=== PATIENT | female | born 1995 | race African-American/Black ===

== ENCOUNTER 2017-04-18 21:44 | Emergency (ER) | payer OTHER ==
[~2017-04-18] VITALS: Ht 154.9 cm; Wt 49.7 kg
[~2017-04-18 21:44] MED LIST: AUGMENTIN875 MG PO; FLEXERIL10 MG PO; LOESTRIN 1/21 TABLET PO; MOTRIN400 MG PO; MOTRIN600 MG PO; PERIDEX1 ML MM; ULTRACET1 TABLET PO
[2017-04-18 22:16] LABS: CHLORIDE 105 mEq/L (99-109); POTASSIUM 3.9 mEq/L (3.7-5.4); SODIUM 135 mEq/L (136-147)
[2017-04-18 22:18] LABS: GLUCOSE 102 mg/dL (70-99)
[2017-04-18 22:19] LABS: ANION GAP 6 MEQ/L (2-14)
[2017-04-18 22:20] LABS: TOTAL BILIRUBIN 0.6 mg/dL (0.0-1.0)
[2017-04-18 22:22] LABS: ALKALINE PHOSPHATASE 41 IU/L (3-129); GFR ESTIMATE (CALCULATED) > 59 mL/min/
[2017-04-18 22:23] LABS: HEMATOCRIT 32.3 % (36.0-46.0); MCH 20.7 PG (29.0-34.0); MCHC 30.3 G/DL (30.0-36.0); MCV 68.3 FL (83-99); MEAN PLAT.VOLUME 10.5 uM^3 (9.5-12.4); PLATELET COUNT 164 K/uL (156-360); RBC DIS.WIDTH-CV 18.6 % (11.8-14.6); RBC DIS.WIDTH-SD 45.1 % (39-53); RED BLOOD COUNT 4.73 M/uL (3.80-5.20); UREA NITROGEN (BUN) 10 mg/dL (9-23); WHITE BLOOD COUNT 6.8 K/uL (4.1-10.2)
[2017-04-18 22:25] LABS: LIPASE 38 U/L (1.0-51.0)
[2017-04-18 22:31] LABS: QUANTITATIVE HCG < 4.0 MIU/ML
[2017-04-18 23:08] LABS: ADD MIUA? YES; BILIRUBIN NEGATIVE; BLOOD NEGATIVE; COLOR STRAW ((YELLOW)); GLUCOSE (STRIP) NEGATIVE; KETONES NEGATIVE; LEUKOCYTES SMALL; NITRITE NEGATIVE; PROTEIN (STRIP) NEGATIVE; SPECIFIC GRAVITY 1.002 (1.000-1.030); UROBILINOGEN 0.2 MG/DL (0.2-1.0)
[2017-04-18 23:12] LABS: BACTERIA RARE /HPF; EPITHELIAL CELLS 1+ /HPF; MUCUS NONE SEEN /LPF; RED BLOOD CELLS 0-5 /HPF (0-5); UCUL ADDED? NO; WHITE BLOOD CELLS 0-5 /HPF (0-5)
[2017-04-18] MEDS ORDERED: ZOFRAN4 MG PO (23:35)
[2017-04-18] MEDS ORDERED: PEPCID20 MG PO (23:35)
[2017-04-18 23:45] VITALS: BP 130/78
== END 2017-04-19 00:14 | disposition home or self-care (01) ==
LOC: EME 21:44
PROVIDERS: Physician Assistant
DX: R11.10 Vomiting, unspecified (principal); F17.200 Nicotine dependence, unspecified, uncomplicated
CPT/HCPCS: 80053; 81003; 83690; 84702; 85027; 99281; 99285; J1885; J2405; J7030

== ENCOUNTER 2017-07-15 15:38 | Emergency (ER) | payer OTHER ==
[~2017-07-15] VITALS: Ht 157.5 cm; Wt 47.6 kg
[~2017-07-15 15:38] MED LIST changes: +PEPCID20 MG PO; +ZOFRAN4 MG PO
[2017-07-15 16:07] LABS: HEMATOCRIT 29.6 % (36.0-46.0); HEMOGLOBIN 9.4 G/DL (11.9-15.5); MCH 24.2 PG (29.0-34.0); MCHC 31.8 G/DL (30.0-36.0); MCV 76.1 FL (83-99); PLATELET COUNT 182 K/uL (156-360); RBC DIS.WIDTH-CV 19.7 % (11.8-14.6); RBC DIS.WIDTH-SD 54.4 % (39-53); RED BLOOD COUNT 3.89 M/uL (3.80-5.20); WHITE BLOOD COUNT 5.3 K/uL (4.1-10.2)
[2017-07-15 17:32] LABS: APPEARANCE SL.HAZY ((CLEAR)); BILIRUBIN NEGATIVE; BLOOD MODERATE; COLOR YELLOW ((YELLOW)); GLUCOSE (STRIP) NEGATIVE; KETONES NEGATIVE; LEUKOCYTES NEGATIVE; NITRITE NEGATIVE; PROTEIN (STRIP) NEGATIVE; SPECIFIC GRAVITY 1.016 (1.000-1.030); UROBILINOGEN 0.2 MG/DL (0.2-1.0)
[2017-07-15 17:43] LABS: BACTERIA NONE SEEN /HPF; EPITHELIAL CELLS 1+ /HPF; MUCUS TRACE /LPF; RED BLOOD CELLS 0-5 /HPF (0-5); UCUL ADDED? NO; WHITE BLOOD CELLS 0-5 /HPF (0-5)
[2017-07-15 18:59] VITALS: BP 143/94
== END 2017-07-15 19:00 | disposition home or self-care (01) ==
LOC: EME 15:38
DX: N92.0 Excessive and frequent menstruation with regular cycle (principal); D50.9 Iron deficiency anemia, unspecified; F17.200 Nicotine dependence, unspecified, uncomplicated
CPT/HCPCS: 81003; 84702; 85027; 99281; 99284